=== PATIENT | male | born 1960 | race Caucasian/White ===

== ENCOUNTER 2018-06-08 08:48 | Inpatient (IN) | payer OTHER ==
[~2018-06-08] VITALS: Ht 170.2 cm; Wt 98.4 kg
[2018-07-27] MEDS ORDERED: ASPIRIN 81M81 MG/TA2 PO (22:14)
[2018-07-27] MEDS ORDERED: ARTANE 2MG2 MG PO (22:15)
[2018-07-27] MEDS ORDERED: SINEMET 25/101 UDTAB PO (22:16)
[2018-07-27] MEDS ORDERED: AZILECT1 MG PO (22:16)
[2018-07-27] MEDS ORDERED: STOOL SOFTENER100 M2 PO (22:17)
[2018-07-27] MEDS ORDERED: LASIX 40MG TABL40 MG PO (22:19)
[2018-07-27] MEDS ORDERED: NATURAL IRON65 MG PO (22:19)
[2018-07-27] MEDS ORDERED: LOPRESSOR 225 MG/TAB PO (22:19)
[2018-07-27] MEDS ORDERED: PLAVIX 75MG TAB75 MG PO (22:20)
[2018-07-27] MEDS ORDERED: NITROSTAT0.4 MG/TAB SL (22:20)
[2018-07-27] MEDS ORDERED: KLOR-CON/EF25 MEQ PO (22:21)
[2018-07-27] MEDS ORDERED: REQUIP XL12 MG PO (22:22)
[2018-07-27] MEDS ORDERED: PRAVACHOL80 MG PO (22:22)
[2018-07-27] MEDS ORDERED: EXELON PAT4.6 MG/24 TD (22:23)
[2018-07-27] MEDS ORDERED: TIKOSYN0.5 MG PO (22:24)
[2018-07-28] VITALS (13 sets, daily range): BP systolic 109–129; BP diastolic 67–88; PULSE 60–85; TEMP 97.5–98.7
[2018-07-28] MEDS ORDERED: PLAVIX 75MG TAB75 MG PO (05:49)
[2018-07-28] MEDS ORDERED: FOLIC ACID0.4 MG PO (05:52)
[2018-07-28] MEDS ORDERED: VTAMINC250TA PO (05:53)
--- NOTE | 2018-07-28 06:36 | NUR ---
Patient prepared for right knee surgery with no incidents. Admission and assessment completed. Med-rec and allergies reviewed and updated. Right knee scrubbed, pedal pulses marked, LLE celena hose applied, 20 g IV started to left hand and pre-op medications given. at bedside. Report called to Fidel Raphael CRNA. Sent down to surgery with Calvin at this time.
[2018-07-28] MEDS ORDERED: ASPI325T6 PO (07:07)
--- NOTE | 2018-07-28 07:09 | NUR ---
report from Catina BAIRD.
--- NOTE | 2018-07-28 10:04 | NUR ---
PT TO ROOM 329 PER BED WITH ASTRID ARMORED MACHINE OPERATOR GIVING REPORT @ 8509. PT IS A/O X3 LUNGS CLEAR, BOWEL SOUNDS ACTIVE. RIGHT KNEE CDI WITH GIULIANO WRAP AND POLAR PACK INPLACE.
--- NOTE | 2018-07-28 10:43 | NUR ---
Initial visit; Patient thanked Silk Screen Painter for looking in on him and offering God's blessings.
--- NOTE | 2018-07-28 15:42 | NUR ---
SW and SW student met with patient to discuss discharge planning. Patient lives in [facility] with his Kimberly. His PCP is Dr Toi Emerson and he obtains his medications from [facility]. Patient reports he has a DPOA but did not bring it. He has a Walker and is doing his outpatient PT at [facility]. There are no anticipated discharge needs.
--- NOTE | 2018-07-28 19:33 | NUR ---
Assessment completed. Patient is A&O x 4. Denies any pain at this time. Adalid wrap dressing to right knee is CDI with cryocuff maintained to knee. Pedal pulses intact. BLE scds/LLE celena hose on. Encouraged ankle pumps. Tolerating diet with no c/o nausea. Voiding with no difficulities. INT to left hand with intermittent antibiotic. Patient is up with assist x 1 with walker and gait belt, gait steady. Family at bedside. Denies any concerns or needs at this time. Bed is in a low position with call light in reach.
--- NOTE | 2018-07-28 21:00 | NUR ---
Patient ambulated 75 feet in the hallway this evening with gait belt and walker, gait steady. Patient is sitting up in the chair in room with RLE elevated on pillows.
--- NOTE | 2018-07-28 22:00 | NUR ---
Patient assisted back into bed and repositioned onto right side with pillows between his knees. Cryocuff maintained to knee. Home CPAP at bedside for use through the night.
[2018-07-29 00:55] VITALS: BP 113/60; PULSE 72; TEMP 98
[2018-07-29 04:33] VITALS: BP 119/71; PULSE 64; TEMP 98.3
--- NOTE | 2018-07-29 05:15 | NUR ---
Patient has rested well through the night. VSS, home CPAP used through the night. Pain has remained controlled with current oral regimen. Adalid wrap dressing to right knee remains CDI with cryocuff maintained to knee. Up with standby assist with walker to the bathroom through the night, gait remains steady. Denies any concerns or needs at this time, call light remains within reach.
[2018-07-29 05:59] LABS: HEMATOCRIT 41.2 % (42.0-52.0); HEMOGLOBIN 13.6 g/dl (13.5-18.0)
--- NOTE | 2018-07-29 07:25 | NUR ---
report From Catina BAIRD.
[2018-07-29 07:31] VITALS: BP 101/63; PULSE 59; TEMP 97.7
--- NOTE | 2018-07-29 10:19 | NUR ---
PT UP TO RECLINER FOR BREAKFAST. OUT TO NAIDU FOR THERAPY THEN RETURNED TO ROOM. SITTING UP IN RECLINER. PO PAIN MEDS USED FOR PAIN CONTROLL.
[2018-07-29 12:25] VITALS: BP 124/59; PULSE 61; TEMP 98.2
[2018-07-29 20:11] VITALS: BP 136/74; PULSE 75; TEMP 98.6
--- NOTE | 2018-07-29 22:00 | NUR ---
Assessment completed. Patient has been sitting up in the bedside chair working on RLE exercises. VSS. Pain controlled with prn Oxycodone. Aquacell dressing to right knee is CDI. Pedal pulses intact. BLE celena hose/scds on. Tolerating diet with no c/o nausea. Voiding with no difficulities. Up with standby assist with walker and gait belt, gait is steady. Ambulated 100 feet this evening in the hallway with staff. Assisted with repositioning RLE after ambulating, cryocuff applied. Denies any concerns or needs. Bed is in a low position with call light in reach.
[2018-07-30 00:51] VITALS: BP 115/69; PULSE 65; TEMP 98.8
--- NOTE | 2018-07-30 05:28 | NUR ---
Patient has rested well through the night. VSS. Left knee pain controlled with prn Oxycodone. Aquacell dressing to right knee remains CDI with cryocuff maintained to knee. Up with standby assist this morning to the restroom, gait continues to be steady. Denies any concerns or needs at this time, call light remains within reach.
[2018-07-30 05:33] VITALS: BP 112/68; PULSE 64; TEMP 97.9
[2018-07-30 06:20] LABS: HEMATOCRIT 42.7 % (42.0-52.0); HEMOGLOBIN 13.7 g/dl (13.5-18.0)
[2018-07-30 08:27] VITALS: BP 129/68; PULSE 88; TEMP 97.5
--- NOTE | 2018-07-30 10:21 | NUR ---
First visit from the bookmobile driver. No needs right now.
[2018-07-30 12:25] VITALS: BP 112/66; PULSE 71; TEMP 97.8
--- NOTE | 2018-07-30 14:30 | NUR ---
PATIENT IS DICHARGING HOME VIA WHEELCHAIR TO PERSONAL VEHICLE WITH . GAVE DISCHARGE INSTRUCTIONS, PRESCRIPTIONS, AQUACEL AND FOLLOW UP APT. ANSWERED ALL QUESTIONS/CONCERNS. SENT HOME PERSONAL BELONGINGS. PATIENT DISCHARGED.
== END 2018-07-30 14:30 | disposition home or self-care (01) | DRG 470 ==
LOC: JCC 07-14 11:00 → EDSEX 07-28 11:00 → JCC 07-30 14:30
PROVIDERS: ADMIT Orthopaedic Surgery Sports Medicine
PROC: 0SRC0J9 Replacement of Right Knee Joint with Synthetic Substitute, Cemented, Open Approach (ICD-10-PCS; principal; 2018-07-28 07:30)
DX: M17.11 Unilateral primary osteoarthritis, right knee (principal); G20 Parkinson's disease; I48.91 Unspecified atrial fibrillation; I25.10 Atherosclerotic heart disease of native coronary artery without angina pectoris; Z95.810 Presence of automatic (implantable) cardiac defibrillator; Z85.828 Personal history of other malignant neoplasm of skin; E78.5 Hyperlipidemia, unspecified; Z95.5 Presence of coronary angioplasty implant and graft
CPT/HCPCS: A4314; A9284; C1713; C1776; J0690; J2405; J2704; J3010; J7120

== ENCOUNTER → 2018-07-21 | Outpatient (CLI) | payer OTHER | LOC: COL.LAB 11:01 | DX: Z01.812 Encounter for preprocedural laboratory examination (principal) ==

== ENCOUNTER → 2021-10-24 | Outpatient (CLI) | payer OTHER ==
[~2021-10-24] MED LIST: ARTANE 2MG2 MG PO; ASPI325T6 PO; ASPIRIN 81M81 MG/TA2 PO; AZILECT1 MG PO; EXELON PAT4.6 MG/24 TD; FOLIC ACID0.4 MG PO; KLOR-CON/EF25 MEQ PO; LASIX 40MG TABL40 MG PO; LOPRESSOR 225 MG/TAB PO; NATURAL IRON65 MG PO; NITROSTAT0.4 MG/TAB SL; PLAVIX 75MG TAB75 MG PO; PRAVACHOL80 MG PO; REQUIP XL12 MG PO; SINEMET 25/101 UDTAB PO; STOOL SOFTENER100 M2 PO; TIKOSYN0.5 MG PO; VTAMINC250TA PO
== END ==
LOC: COL.RAD 13:04
DX: M51.36 Other intervertebral disc degeneration, lumbar region (principal); N20.0 Calculus of kidney

== ENCOUNTER → 2023-08-08 | Outpatient (CLI) | payer MEDICARE | LOC: COL.RAD 08:51 | DX: M51.36 Other intervertebral disc degeneration, lumbar region (principal); M47.816 Spondylosis without myelopathy or radiculopathy, lumbar region; I77.811 Abdominal aortic ectasia ==